=== PATIENT | male | born 1970 | race Caucasian/White ===

== ENCOUNTER 2019-06-01 08:28 | Day surgery (SDC) | payer OTHER ==
[2019-06-01] MEDS ORDERED: PROPOFOL 200 MG INJ (11:38)
[2019-06-01] MEDS ORDERED: LIDOCAINE 100 MG SYRINGE (11:39)
[2019-06-01] MEDS ORDERED: PROPOFOL 40 ML (11:39)
== END 2019-06-01 14:48 | disposition home or self-care (01) ==
LOC: GIL 08:28
DX: D12.5 Benign neoplasm of sigmoid colon (principal); K64.9 Unspecified hemorrhoids; F17.200 Nicotine dependence, unspecified, uncomplicated
CPT/HCPCS: 45385; 88305; 88313